=== PATIENT | male | born 1995 | race Caucasian/White ===

== ENCOUNTER 2021-06-06 16:53 | Emergency (ER) | payer MEDICAID, SELFPAY ==
[2021-06-06 17:21] VITALS: BP 151/86; PULSE 99; RESP 16; TEMP 38.2; O2SAT 99
--- NOTE | 2021-06-06 20:04 | ED.GENADULT ---
HPI - General Adult General Chief complaint: Extremity Injury, Lower Stated complaint: leg pain Time Seen by Provider: 06/06/21 19:23 Source: patient and RN notes reviewed Mode of arrival: ambulatory Limitations: no limitations History of Present Illness HPI narrative: Patient is a 25-year-old male who presents to emergency department for evaluation of rash and swelling to the right leg patient noticed this over the last couple of days notes a burning pain worse with touch and activity notes he has some chills and subjective fever. Patient denies similar occurrence in the past denies any URI symptoms or other complaints presents nondistressed as noted has not taken anything for their symptoms Related Data Allergies Allergy/AdvReac Type Severity Reaction Status Date / Time No Known Allergies Allergy Verified 06/06/21 17:27 Review of Systems Review of Systems: All systems reviewed & are unremarkable except as noted in HPI and below Exam Narrative: GENERAL: Well-appearing, well-nourished, and in no acute distress. HEAD: Normocephalic, atraumatic. EYES: PERRLA and EOMI. ENT: Nares clear, no rhinorrhea or epistaxis. Mucous membranes moist. CHEST: Clear to auscultation. No respiratory distress. No wheezes rales or rhonchi HEART: Regular rate and rhythm. No murmur heard. Normal peripheral pulses. EXTREMITIES: Normal range of motion. No edema. SKIN: Warm, dry, patient with splotchy rash with patches to the right ryan with some swelling nonerythematous no lymphangitic streaking or drainage noted the rash is located to the right anterior ryan NEURO: No focal deficits. Alert and oriented x3. Cranial nerves II through XII grossly intact. Neurovascularly intact PSYCH: Normal mood and affect. Course Course Emergency Course: Patient in the room nondistressed aware of case findings treatment plan and diagnosis will be treated as a cellulitis advised to follow-up with primary care given strict indications for return he agrees to do so Vital Signs Vital signs: Vital Signs Temperature 100.7 F H 06/06/21 17:21 Pulse Rate 99 06/06/21 17:21 Respiratory Rate 16 06/06/21 17:21 Blood Pressure 151/86 H 06/06/21 17:21 Pulse Oximetry 99 06/06/21 17:21 Temperature 100.7 F H 06/06/21 17:21 Pulse Rate 99 06/06/21 17:21 Respiratory Rate 16 06/06/21 17:21 Blood Pressure 151/86 H 06/06/21 17:21 Pulse Oximetry 99 06/06/21 17:21 Medical Decision Making MDM Narrative Medical decision making narrative: Patients injury or pain is consistent with musculoskeletal etiology likely cellulitis. No signs of neurological or vascular compromise on exam. Compartments and tisues are soft without signs of compartment syndrome. Pain and rash is felt appropriate for further evaluation on an outpatient basis. Vital Signs Vital Signs: Vital Signs Temperature 100.7 F H 06/06/21 17:21 Pulse Rate 99 06/06/21 17:21 Respiratory Rate 16 06/06/21 17:21 Blood Pressure 151/86 H 06/06/21 17:21 Pulse Oximetry 99 06/06/21 17:21 Temperature 100.7 F H 06/06/21 17:21 Pulse Rate 99 06/06/21 17:21 Respiratory Rate 16 06/06/21 17:21 Blood Pressure 151/86 H 06/06/21 17:21 Pulse Oximetry 99 06/06/21 17:21 Discharge Plan Discharge Clinical Impression: Cellulitis of right leg Patient Disposition: Home, Self-Care Condition: Stable Instructions: Antibiotic Form, Cellulitis (ED) Additional Instructions: Follow up with primary care in the next 2-3 days for re-evaluation return if symptoms worsen or concerns, any increase in redness swelling pain or fever over 100.5 Clean wound with mild soapy water. Apply antibiotic ointment and clean dressing at least three times daily Follow patient education sheets Warm compresses 3 times a day for 15 minutes each Prescriptions: New doxycycline hyclate 100 mg capsule 100 mg PO BID 10 Days Qty: 20 RF: 0 mupirocin 2 % ointment 1 applic topical TID Qty: 15 R
== END 2021-06-06 20:33 | disposition home or self-care (01) ==
PROVIDERS: Emergency Provider Emergency Medicine
DX: L03.115 Cellulitis of right lower limb (principal)
CPT/HCPCS: 99283